=== PATIENT | male | born 1985 | race Two or more races ===

== ENCOUNTER 2024-12-07 20:05 | Emergency (ER) | payer BC, OTHER | END 2024-12-07 22:46 | disposition home or self-care (01) | LOC: ERS 20:05 | DX: S62.663A Nondisplaced fracture of distal phalanx of left middle finger, initial encounter for closed fracture (principal); S60.132A Contusion of left middle finger with damage to nail, initial encounter; W22.8XXA Striking against or struck by other objects, initial encounter; Y99.0 Civilian activity done for income or pay | CPT/HCPCS: 11740; 96372; 99283 ==